=== PATIENT | female | born 1950 | race Caucasian/White ===

== ENCOUNTER 2017-07-30 18:46 | Inpatient (IN) | payer MEDICARE ==
[~2017-07-30] VITALS: Ht 160 cm; Wt 77.4 kg
[~2017-07-30 18:46] MED LIST: ASPI-1264 PO; CHOL10002 PO; DICY10CA88 PO; PARO25TA16 PO; PER10325T PO; SYN0.1T PO; VALS160T2 PO; VITA1TAB20 PO
[2017-07-30 19:24] LABS: BASOPHILS % (AUTO) 0.4 % (0-1); EOSINOPHILS # (AUTO) 0.2 X10'3 (0-0.9); EOSINOPHILS % (AUTO) 2.2 % (0-6); HEMATOCRIT 41.1 % (35.0-45.0); HEMOGLOBIN 14.4 g/dl (12.0-16.0); LYMPHOCYTES # (AUTO) 1.6 X10'3 (1.1-4.8); LYMPHOCYTES % (AUTO) 16.5 % (21-51); MEAN CORPUSCULAR HEMOGLOBIN 32.7 PG (27.0-31.0); MEAN CORPUSCULAR VOLUME 93.5 FL (78-98); MEAN PLATELET VOLUME 5.9 FL (7.4-10.4); MONOCYTES # (AUTO) 0.7 X10'3 (0-0.9); MONOCYTES % (AUTO) 7.5 % (2-12); NEUTROPHILS # (AUTO) 6.9 X10'3 (1.8-7.7); NEUTROPHILS % (AUTO) 73.4 % (42-75); PLATELET COUNT 284 X10'3 (140-440); RED BLOOD COUNT 4.39 X10'6 (4.20-5.60); RED CELL DISTRIBUTION WIDTH 14.6 % (11.5-14.5); WHITE BLOOD COUNT 9.5 X10'3 (4.5-11.0)
[2017-07-30 19:36] LABS: INR 0.9 INR; PARTIAL THROMBOPLASTIN TIME 25 SECONDS (22-32); PROTHROMBIN TIME 9.8 SECONDS (9.0-12.0)
[2017-07-30 19:42] LABS: ALANINE AMINOTRANSFERASE 25 U/L (12-78); ALBUMIN 3.7 G/DL (3.4-5.0); ALBUMIN/GLOBULIN RATIO 0.8 (1.1-1.5); ALKALINE PHOSPHATASE 87 IU/L (46-116); ANION GAP 12 (8-16); ASPARTATE AMINO TRANSFERASE 24 U/L (10-37); BILIRUBIN,TOTAL 0.7 MG/DL (0.1-1.0); BLOOD UREA NITROGEN 20 MG/DL (7-18); BUN/CREATININE RATIO 13.4 (6.6-38.0); CHLORIDE 102 MMOL/L (99-107); CREATININE 1.49 MG/DL (0.40-0.90); GLUCOSE 105 MG/DL (70-104); POTASSIUM 4.4 MMOL/L (3.5-5.1); SODIUM 139 MMOL/L (135-145); TOTAL CARBON DIOXIDE 25.5 MMOL/L (24-32); TOTAL PROTEIN 8.1 G/DL (6.4-8.2); TROPONIN I < 0.04 NG/ML (0.0-0.05); eGFR 35 ML/MIN
[2017-07-30] MEDS ORDERED: AMLO10TA4 PO (20:18)
[2017-07-30] MEDS ORDERED: LABE100T PO (20:18)
[2017-07-30] MEDS ORDERED: VALS160T2 PO (20:18)
[2017-07-30] MEDS ORDERED: ondansetron/PF 4mg/2ml inj IV PRN (22:55)
[2017-07-30] MEDS ORDERED: magnesium hydroxide 30ml (MOM) UD suspension PO PRN (22:55)
[2017-07-30] MEDS ORDERED: acetaminophen 325mg tablet PO PRN (22:55)
[2017-07-30] MEDS ORDERED: mag hydrox/Alum hydrox/simeth 30ml oral suspension PO PRN (22:55)
[2017-07-30] MEDS ORDERED: aspirin 325mg tablet PO ONE (23:00)
[2017-07-31 01:10] VITALS: BP 139/64
[2017-07-31 06:00] VITALS: BP 142/62
[2017-07-31] MEDS ORDERED: levoTHYROXINE 100mcg tablet PO SCH (07:00)
[2017-07-31 07:05] LABS: BASOPHILS # (AUTO) 0.1 X10'3 (0-0.2); BASOPHILS % (AUTO) 0.8 % (0-1); EOSINOPHILS # (AUTO) 0.2 X10'3 (0-0.9); HEMATOCRIT 37.9 % (35.0-45.0); HEMOGLOBIN 13.2 g/dl (12.0-16.0); LYMPHOCYTES # (AUTO) 1.4 X10'3 (1.1-4.8); LYMPHOCYTES % (AUTO) 18.3 % (21-51); MEAN CORPUSCULAR HEMOGLOBIN 32.9 PG (27.0-31.0); MEAN CORPUSCULAR HGB CONC 34.8 % (33.0-36.5); MEAN CORPUSCULAR VOLUME 94.4 FL (78-98); MEAN PLATELET VOLUME 6.3 FL (7.4-10.4); MONOCYTES # (AUTO) 0.6 X10'3 (0-0.9); MONOCYTES % (AUTO) 7.3 % (2-12); NEUTROPHILS # (AUTO) 5.5 X10'3 (1.8-7.7); NEUTROPHILS % (AUTO) 70.6 % (42-75); PLATELET COUNT 239 X10'3 (140-440); RED BLOOD COUNT 4.01 X10'6 (4.20-5.60); RED CELL DISTRIBUTION WIDTH 14.4 % (11.5-14.5); WHITE BLOOD COUNT 7.8 X10'3 (4.5-11.0)
[2017-07-31 07:21] LABS: ALANINE AMINOTRANSFERASE 29 U/L (12-78); ALBUMIN 3.3 G/DL (3.4-5.0); ALKALINE PHOSPHATASE 73 IU/L (46-116); ANION GAP 10 (8-16); ASPARTATE AMINO TRANSFERASE 21 U/L (10-37); BILIRUBIN,TOTAL 0.9 MG/DL (0.1-1.0); BLOOD UREA NITROGEN 18 MG/DL (7-18); BUN/CREATININE RATIO 17.6 (6.6-38.0); CALCIUM 8.7 MG/DL (8.5-10.1); CHLORIDE 104 MMOL/L (99-107); CREATININE 1.02 MG/DL (0.40-0.90); GLUCOSE 89 MG/DL (70-104); POTASSIUM 4.1 MMOL/L (3.5-5.1); SODIUM 140 MMOL/L (135-145); TOTAL CARBON DIOXIDE 26.5 MMOL/L (24-32); TOTAL PROTEIN 6.6 G/DL (6.4-8.2); eGFR 54 ML/MIN
[2017-07-31] MEDS ORDERED: heparin, porcine 5000 units/ml vial SQ SCH (08:00)
[2017-07-31] MEDS ORDERED: labetalol 100mg tablet PO SCH (08:00)
[2017-07-31] MEDS ORDERED: PAROXETINE HCL 37.5 MG PO SCH (08:00)
[2017-07-31] MEDS ORDERED: PARoxetine 30mg tablet PO SCH (08:00)
[2017-07-31] MEDS ORDERED: amLODIPine 5mg tablet PO SCH (08:00)
[2017-07-31] MEDS ORDERED: PARoxetine 10mg tablet PO SCH (08:12)
[2017-07-31] MEDS ORDERED: PARoxetine 10mg tablet PO ONE (08:15)
[2017-07-31 10:00] VITALS: BP 121/64
[2017-07-31] MEDS ORDERED: ASPI-611 PO (12:47)
== END 2017-07-31 13:55 | disposition home or self-care (01) | DRG 69 ==
LOC: ER 18:46 → ED HOLD 22:54 → ORTHO 4S 07-31 00:30
PROVIDERS: ADMIT Internal Medicine; ATTEND Internal Medicine
DX: G45.9 Transient cerebral ischemic attack, unspecified (principal); K51.90 Ulcerative colitis, unspecified, without complications; R47.81 Slurred speech; I10 Essential (primary) hypertension; Z90.49 Acquired absence of other specified parts of digestive tract; Z90.710 Acquired absence of both cervix and uterus; Z79.899 Other long term (current) drug therapy; Z88.2 Allergy status to sulfonamides; Z88.8 Allergy status to other drugs, medicaments and biological substances; Z91.041 Radiographic dye allergy status; Z88.6 Allergy status to analgesic agent
CPT/HCPCS: 36415; 70450; 70551; 71045; 80053; 82948; 84484; 85025; 85610; 85730; 87070; 93306; 93880; 97116; 97161; 99285; J1644

== ENCOUNTER 2017-09-07 10:39 | Outpatient (CLI) | payer MEDICARE ==
[~2017-09-07 10:39] MED LIST changes: +AMLO10TA4 PO; -ASPI-1264 PO; -CHOL10002 PO; -DICY10CA88 PO; +LABE100T PO; -PER10325T PO; -VITA1TAB20 PO
== END 2017-09-07 23:59 | disposition home or self-care (01) ==
LOC: 64 CT 10:39
PROVIDERS: ATTEND Internal Medicine
DX: K57.30 Diverticulosis of large intestine without perforation or abscess without bleeding (principal); Z90.49 Acquired absence of other specified parts of digestive tract; Z90.710 Acquired absence of both cervix and uterus
CPT/HCPCS: 74176

== ENCOUNTER 2017-09-18 08:30 | Outpatient (CLI) | payer MEDICARE | END 2017-09-18 23:59 | disposition home or self-care (01) | LOC: RAD 08:30 | PROVIDERS: ATTEND Internal Medicine | DX: R10.30 Lower abdominal pain, unspecified (principal); I10 Essential (primary) hypertension; Z90.49 Acquired absence of other specified parts of digestive tract; Z90.710 Acquired absence of both cervix and uterus | CPT/HCPCS: 76700; 76856 ==

== ENCOUNTER 2022-08-23 10:44 | Day surgery (SDC) | payer MEDICARE ==
[2022-08-19 10:59] LABS: BASOPHILS # (AUTO) 0.1 X10'3 (0-0.2); EOSINOPHILS # (AUTO) 0.3 X10'3 (0-0.9); HEMATOCRIT 36.2 % (35.0-45.0); HEMOGLOBIN 11.9 g/dl (12.0-16.0); LYMPHOCYTES # (AUTO) 0.7 X10'3 (1.1-4.8); LYMPHOCYTES % (AUTO) 11.4 % (21-51); MEAN CORPUSCULAR HEMOGLOBIN 28.7 PG (27.0-31.0); MEAN CORPUSCULAR HGB CONC 32.8 g/dL (33.0-36.5); MEAN CORPUSCULAR VOLUME 87.5 FL (78-98); MEAN PLATELET VOLUME 5.8 FL (7.4-10.4); MONOCYTES # (AUTO) 0.5 X10'3 (0-0.9); MONOCYTES % (AUTO) 8.4 % (2-12); NEUTROPHILS # (AUTO) 4.5 X10'3 (1.8-7.7); NEUTROPHILS % (AUTO) 74.2 % (42-75); PLATELET COUNT 292 X10'3 (140-440); RED BLOOD COUNT 4.13 X10'6 (4.20-5.60); RED CELL DISTRIBUTION WIDTH 17.9 % (11.5-14.5); WHITE BLOOD COUNT 6.1 X10'3 (4.5-11.0)
[2022-08-19 11:06] LABS: APTT 28 SECONDS (22-32)
[2022-08-19 11:08] LABS: ALBUMIN 3.8 G/DL (3.4-5.0); ANION GAP 6 (8-16); BLOOD UREA NITROGEN 10 MG/DL (7-18); BUN/CREATININE RATIO 12.5 (10.0-20.0); CALCIUM 8.3 MG/DL (8.5-10.1); CHLORIDE 98 MMOL/L (99-107); CHOL/HDL RATIO 2.5 (0.00-4.99); CHOLESTEROL 239 MG/DL (0-200); GLUCOSE 93 MG/DL (70-104); HDL CHOLESTEROL 96 MG/DL (35-60); LDL CHOLESTEROL 125 MG/DL (50-100); POTASSIUM 4.2 MMOL/L (3.5-5.1); SODIUM 134 MMOL/L (135-145); TRIGLYCERIDES 45 MG/DL (20-135); eGFR 71 ML/MIN
[2022-08-23] VITALS (8 sets, daily range): BP systolic 141–167; BP diastolic 69–95
[~2022-08-23] VITALS: Ht 157.5 cm; Wt 52.2 kg
[~2022-08-23 10:44] MED LIST changes: -LABE100T PO; +LABE100T8 PO; -PARO25TA16 PO; +PARO25TA22 PO
[2022-08-23] MEDS ORDERED: normal saline 1,000 ML IV SCH (11:05)
[2022-08-23] MEDS ORDERED: LORazepam 0.5 MG tablet PO PRN (11:05)
[2022-08-23] MEDS ORDERED: diphenhydrAMINE 25mg capsule PO PRN (11:05)
[2022-08-23] MEDS ORDERED: DULO30CA52 PO (11:11)
[2022-08-23] MEDS ORDERED: ibuprofen PO (11:11)
[2022-08-23] MEDS ORDERED: verapamil 2.5 mg/ml inj IV ONE (12:39)
[2022-08-23] MEDS ORDERED: nitroGLYCERIN-Tridil 50MG/D5W 250 ML IV ONE (12:40)
[2022-08-23] MEDS ORDERED: fentaNYL/PF 50MCG/1 ML 2ML syringe ONE (12:40)
[2022-08-23] MEDS ORDERED: midazolam 1 mg/ML 2ml injection ONE ×2 (12:40→14:02)
[2022-08-23] MEDS ORDERED: heparin 1,000unit/ml 10ml vial 10 ML ONE (12:40)
[2022-08-23] MEDS ORDERED: iohexol 350MG/ML 100ml bottle IV ONE (12:40)
[2022-08-23] MEDS ORDERED: iohexol 350 MG/ML 50ML vial IV ONE (12:40)
[2022-08-23] MEDS ORDERED: LIDOcaine 1% (10mg/ml) 2ml vial ONE (12:55)
[2022-08-23] MEDS ORDERED: LIDOcaine 1% 30ml preserv. free vial ONE (14:05)
[2022-08-23] MEDS ORDERED: HYDROcodone/acetaminophen 5mg/325mg tablet PO PRN (15:15)
[2022-08-23] MEDS ORDERED: proCHLORperazine 10 MG/2 ml inj IV PRN (15:15)
[2022-08-23] MEDS ORDERED: HYDROcodone/acetaminophen 10/325mg tab PO PRN (15:15)
[2022-08-23] MEDS ORDERED: ondansetron/PF 4mg/2ml inj IV PRN (15:15)
[2022-08-23] MEDS ORDERED: OXAZEpam 15mg capsule PO PRN (15:15)
--- NOTE | 2022-08-23 16:30 | NUR ---
Pt bleeding from radial site. Applied pressure, pushed more air into vasc band but the site is bleeding around the pillow. Called for 2nd RN to assist. 2nd RN held pressure above while I removed the vasc band and placed gauze and coban. Dressing now CD&I, small hematoma noted and pushed out. Continue to monitor.
--- NOTE | 2022-08-23 16:50 | NUR ---
Pt c/o nausea. Medicated with zofran 4mg IV as ordered. Will continue to monitor.
--- NOTE | 2022-08-23 16:50 | NUR ---
Sat patient up in bed at 1645. At 1650 when rechecking, patient had large softball sized hematoma in right groin. Layed patient down and put steady pressure with my fist for 7 minutes. Site now soft and will continue to monitor.
--- NOTE | 2022-08-23 17:50 | NUR ---
Patient ambulated without any difficulty. Groin and radial sites both look good with no s/s hematoma. Pt getting dressed and ready for discharge. Pt's nausea resolved.
== END 2022-08-23 18:00 | disposition home or self-care (01) ==
LOC: SSTAY O 10:44
PROVIDERS: ATTEND Student in an Organized Health Care Education/Training Program
DX: I71.20 Thoracic aortic aneurysm, without rupture, unspecified (principal); I25.10 Atherosclerotic heart disease of native coronary artery without angina pectoris; I71.21 Aneurysm of the ascending aorta, without rupture; I10 Essential (primary) hypertension; E03.9 Hypothyroidism, unspecified; F32.A Depression, unspecified; M81.0 Age-related osteoporosis without current pathological fracture; M19.90 Unspecified osteoarthritis, unspecified site; Z88.2 Allergy status to sulfonamides; Z88.8 Allergy status to other drugs, medicaments and biological substances; Z91.041 Radiographic dye allergy status; Z79.01 Long term (current) use of anticoagulants; Z79.899 Other long term (current) drug therapy
CPT/HCPCS: 36415; 80048; 80061; 85025; 85610; 85730; 93005; 93458; 93567; 99152; 99153; A6258; C1894; J1644; J2250; J2405; J3010; J3490; J7030; Q0163; Q9967; A6402

== ENCOUNTER 2023-04-10 03:19 | Inpatient (IN) | payer MEDICARE ==
[~2023-04-10] VITALS: Ht 157.5 cm; Wt 71.0 kg
[2023-04-10] VITALS (7 sets, daily range): PULSE 74–129; RESP 16–29; O2SAT 95–99
[~2023-04-10 03:19] MED LIST changes: +DULO30CA52 PO; +GABA300T25 PO; -PARO25TA22 PO
[2023-04-10] MEDS ORDERED: ipratropium/albuterol 3ml nebule NEB ONE (03:30)
[2023-04-10] MEDS ORDERED: aspirin 81mg tab.chew PO ONE (03:35)
[2023-04-10] MEDS ORDERED: nitroGLYCERIN 0.4mg SUBLingual tab SL PRN ×2 (03:35)
[2023-04-10] MEDS ORDERED: aspirin 325mg tablet, delayed-release (Ecotrin) PO ONE (03:35)
[2023-04-10] MEDS ORDERED: labetalol 20mg/4ml (5mg/ml) syringe IV ONE ×2 (03:45→10:40)
[2023-04-10] MEDS ORDERED: furosemide 10 MG/1 ML 10ml inj IV ONE (03:45)
[2023-04-10 04:04] LABS: ALANINE AMINOTRANSFERASE 23 U/L (12-78); ALBUMIN 3.7 G/DL (3.4-5.0); ALBUMIN/GLOBULIN RATIO 1.1 (1.1-1.5); ALKALINE PHOSPHATASE 80 IU/L (46-116); ANION GAP 11 (8-16); ASPARTATE AMINO TRANSFERASE 29 U/L (10-37); BLOOD UREA NITROGEN 12 MG/DL (7-18); BUN/CREATININE RATIO 9.9 (10.0-20.0); CALCIUM 8.8 MG/DL (8.5-10.1); CHLORIDE 100 MMOL/L (99-107); CREATININE 1.21 MG/DL (0.40-0.90); GLUCOSE 159 MG/DL (70-104); POTASSIUM 3.9 MMOL/L (3.5-5.1); SODIUM 138 MMOL/L (135-145); TOTAL CARBON DIOXIDE 27.2 MMOL/L (24-32); TOTAL PROTEIN 7.2 G/DL (6.4-8.2); eCRCL 34 ML/MIN; eGFR 44 ML/MIN
[2023-04-10 04:05] LABS: BASOPHILS # (AUTO) 0.1 X10'3 (0-0.2); EOSINOPHILS # (AUTO) 0.1 X10'3 (0-0.9); EOSINOPHILS % (AUTO) 1.1 % (0-6); LYMPHOCYTES # (AUTO) 1.3 X10'3 (1.1-4.8); LYMPHOCYTES % (AUTO) 12.8 % (21-51); MEAN PLATELET VOLUME 6.9 FL (7.4-10.4); MONOCYTES # (AUTO) 0.7 X10'3 (0-0.9); MONOCYTES % (AUTO) 7.1 % (2-12); NEUTROPHILS # (AUTO) 7.8 X10'3 (1.8-7.7); PLATELET COUNT 216 X10'3 (140-440)
[2023-04-10] MEDS ORDERED: APIX5TAB3 PO (04:11)
[2023-04-10 04:13] LABS: PRO BRAIN NATRIURETIC PEPTIDE > 30000 PG/ML (0-125)
[2023-04-10] MEDS ORDERED: LOSA25TA41 PO (04:18)
[2023-04-10] MEDS ORDERED: EZET10TA48 PO (04:18)
[2023-04-10] MEDS ORDERED: METO25TA6 PO (04:18)
[2023-04-10] MEDS ORDERED: LEVE500T PO (04:18)
[2023-04-10 04:19] LABS: ABG HCO3 24.1 mmol/L (22.0-26.0); ABG OXYGEN SATURATION 99.8 % (94-97); ABG PCO2 (T) 40.4 mmHg (32.0-45.0); ABG PH (T) 7.391 (7.350-7.450); ABG PO2 (T) 445.3 mmHg (75.0-100.0); ALLEN'S TEST Modified; FCOHb 0.8 % (0.0-3.9); FHHb 0.2 % (0.0-5.0); FMetHb 0.3 % (0.0-1.5); FO2Hb 98.7 % (94-97); PATIENT TEMPERATURE 36.2
[2023-04-10 04:24] LABS: HEMATOCRIT 32.9 % (35.0-45.0); HEMOGLOBIN 10.2 g/dl (12.0-16.0); MEAN CORPUSCULAR HEMOGLOBIN 23.1 PG (27.0-31.0); MEAN CORPUSCULAR HGB CONC 31.1 g/dL (33.0-36.5); MEAN CORPUSCULAR VOLUME 74.4 FL (78-98); RED BLOOD COUNT 4.42 X10'6 (4.20-5.60); RED CELL DISTRIBUTION WIDTH 18.8 % (11.5-14.5)
[2023-04-10] MEDS ORDERED: GABA300C PO ×2 (04:34)
[2023-04-10] MEDS ORDERED: FOLI1TAB27 PO (04:34)
[2023-04-10] MEDS ORDERED: HYDROcodone/acetaminophen 5mg/325mg tablet PO PRN (05:05)
[2023-04-10] MEDS: normal saline 1000ml 1,000 ML IV SCH (05:05)
[2023-04-10] MEDS ORDERED: mag hydrox/Alum hydrox/simeth 30ml oral suspension PO PRN (05:05)
[2023-04-10] MEDS ORDERED: diphenhydrAMINE 50 mg/ml inj IV PRN (05:05)
[2023-04-10] MEDS ORDERED: diphenhydrAMINE 25mg capsule PO PRN (05:05)
[2023-04-10] MEDS ORDERED: acetaminophen 650mg rectal suppository RC PRN (05:05)
[2023-04-10] MEDS ORDERED: HYDROcodone/acetaminophen 10/325mg tab PO PRN (05:05)
[2023-04-10] MEDS ORDERED: ipratropium/albuterol 3ml nebule NEB PRN (05:05)
[2023-04-10] MEDS ORDERED: magnesium hydroxide 30ml (MOM) UD suspension PO PRN (05:05)
[2023-04-10] MEDS ORDERED: acetaminophen 325mg tablet PO PRN ×2 (05:05)
[2023-04-10] MEDS ORDERED: ondansetron/PF 4mg/2ml inj IV PRN (05:05)
[2023-04-10] MEDS ORDERED: ondansetron 4mg rapidly disintigrating tab PO PRN (05:05)
[2023-04-10] MEDS ORDERED: morphine 2 MG/ML inj. syringe IV PRN ×2 (05:05)
--- NOTE | 2023-04-10 07:13 | NUR ---
0705 RT AT BEDSIDE. REMOVED BIPAP PLACED ON ROOM AIR.
[2023-04-10 07:52] LABS: ETHANOL < 10 MG/DL (<10); MAGNESIUM 1.5 MG/DL (1.5-2.4); PHOSPHORUS 3.6 MG/DL (2.3-4.5)
[2023-04-10 07:59] LABS: HEMOGLOBIN A1C 4.8 % (4.5-6.2)
[2023-04-10 08:01] LABS: APTT 24 SECONDS (22-32); INR 1.1 INR; PROTHROMBIN TIME 12.1 SECONDS (9.0-12.0)
[2023-04-10] MEDS: furosemide 10 MG/1 ML 10ml inj IV SCH (08:12)
[2023-04-10] MEDS: docusate sod 100mg capsule PO SCH ×2 (08:13→19:46)
[2023-04-10 08:32] LABS: D-DIMER 1.59 MG/L FEU (0-0.50)
[2023-04-10 12:32] LABS: THYROID STIMULATING HORMONE 7.3 ulU/ml (0.34-4.50)
[2023-04-10] MEDS: apixaban 5mg tablet PO SCH (13:06)
[2023-04-10] MEDS: duloxetine 30mg CAPSULE.DR PO SCH (13:07)
[2023-04-10] MEDS: folic acid 1mg tablet PO SCH (13:07)
[2023-04-10] MEDS: ezetimibe 10mg tablet PO SCH (13:07)
[2023-04-10] MEDS: diltiazem 30mg tablet PO SCH ×2 (13:08→19:45)
--- NOTE | 2023-04-10 17:02 | NUR ---
PT REPOSITIONED, LINENS CHANGED
[2023-04-10] MEDS: metoprolol tartrate 50mg tablet PO SCH (19:46)
[2023-04-10] MEDS: gabapentin 300mg capsule PO SCH (19:48)
[2023-04-10] MEDS: levetiracetam 250mg tablet PO SCH (19:54)
--- NOTE | 2023-04-10 19:55 | NUR ---
Pt is a&o x4, pt states she no longer takes keppra. Keppra was tapered down since surgery. Pt refused keppra.
[2023-04-10] MEDS ORDERED: temazepam 15mg capsule PO PRN (21:00)
[2023-04-11] VITALS (10 sets, daily range): BP systolic 105–130; BP diastolic 55–74; PULSE 64–82; RESP 16–20; TEMP 97.5–99; O2SAT 90–100
[2023-04-11] MEDS: diltiazem 30mg tablet PO SCH ×4 (02:30→19:52)
--- NOTE | 2023-04-11 06:56 | NUR ---
ASSUMED CARE OF PATIENT. BED CHANGED, TURNED AND REPOSTIONED.
[2023-04-11] MEDS: levetiracetam 250mg tablet PO SCH ×2 (08:00→19:53)
[2023-04-11] MEDS: furosemide 10 MG/1 ML 10ml inj IV SCH (08:00)
[2023-04-11] MEDS: docusate sod 100mg capsule PO SCH ×2 (08:00→19:53)
[2023-04-11] MEDS: losartan 25mg tablet PO SCH (09:13)
[2023-04-11] MEDS: ezetimibe 10mg tablet PO SCH (09:13)
[2023-04-11] MEDS: gabapentin 300mg capsule PO SCH ×3 (09:15→19:54)
[2023-04-11] MEDS: levoTHYROXINE 100mcg tablet PO SCH (09:15)
[2023-04-11] MEDS: folic acid 1mg tablet PO SCH (09:15)
[2023-04-11] MEDS: duloxetine 30mg CAPSULE.DR PO SCH (09:15)
[2023-04-11] MEDS: apixaban 5mg tablet PO SCH (09:15)
[2023-04-11] MEDS: metoprolol tartrate 50mg tablet PO SCH ×2 (09:16→19:53)
[2023-04-11 09:20] LABS: BASOPHILS % (AUTO) 0.7 % (0-1); EOSINOPHILS # (AUTO) 0.1 X10'3 (0-0.9); HEMATOCRIT 27.6 % (35.0-45.0); HEMOGLOBIN 8.3 g/dl (12.0-16.0); LYMPHOCYTES # (AUTO) 0.7 X10'3 (1.1-4.8); LYMPHOCYTES % (AUTO) 11.3 % (21-51); MEAN CORPUSCULAR HEMOGLOBIN 22.9 PG (27.0-31.0); MEAN CORPUSCULAR HGB CONC 30.1 g/dL (33.0-36.5); MEAN CORPUSCULAR VOLUME 75.9 FL (78-98); MEAN PLATELET VOLUME 6.9 FL (7.4-10.4); MONOCYTES # (AUTO) 0.7 X10'3 (0-0.9); MONOCYTES % (AUTO) 10.4 % (2-12); NEUTROPHILS % (AUTO) 75.6 % (42-75); PLATELET COUNT 182 X10'3 (140-440); RED BLOOD COUNT 3.63 X10'6 (4.20-5.60); RED CELL DISTRIBUTION WIDTH 19.6 % (11.5-14.5); WHITE BLOOD COUNT 6.6 X10'3 (4.5-11.0)
--- NOTE | 2023-04-11 09:30 | NUR ---
PT REFUSED DOREEN, RAFAELA AND LASIX. PT REPORTS THAT HER PCP RECENTLY D/C'd THE RAFAELA.
[2023-04-11 10:26] LABS: ALANINE AMINOTRANSFERASE 15 U/L (12-78); ALBUMIN 2.8 G/DL (3.4-5.0); ALKALINE PHOSPHATASE 59 IU/L (46-116); ANION GAP 6 (8-16); ASPARTATE AMINO TRANSFERASE 23 U/L (10-37); BILIRUBIN,TOTAL 1.1 MG/DL (0.1-1.0); BLOOD UREA NITROGEN 10 MG/DL (7-18); BUN/CREATININE RATIO 11.1 (10.0-20.0); CALCIUM 7.8 MG/DL (8.5-10.1); CHLORIDE 97 MMOL/L (99-107); CHOL/HDL RATIO 2.5 (0.00-4.99); CHOLESTEROL 150 MG/DL (0-200); GLUCOSE 83 MG/DL (70-104); HDL CHOLESTEROL 60 MG/DL (35-60); LDL CHOLESTEROL 77 MG/DL (50-100); POTASSIUM 3.1 MMOL/L (3.5-5.1); SODIUM 137 MMOL/L (135-145); TOTAL CARBON DIOXIDE 33.6 MMOL/L (24-32); TOTAL PROTEIN 5.7 G/DL (6.4-8.2); TRIGLYCERIDES 53 MG/DL (20-135); eCRCL 45 ML/MIN; eGFR 62 ML/MIN
--- NOTE | 2023-04-11 14:28 | NUR ---
PAGE SENT PAGER ID: [phone] MESSAGE: [id number], Lai FRANKS -3.1, WE NEED ELECTROLYTE PROTOCOL PLEASE. THANK YOU, NELLIE, [phone]
[2023-04-11] MEDS ORDERED: magnesium 4gm in 100ml NS 100 ML IV PRN (14:35)
[2023-04-11] MEDS ORDERED: magnesium 2GM in 50ml NS 50 ML IV PRN (14:35)
[2023-04-11] MEDS ORDERED: potassium Cl 20 mEq SR tablet PO PRN ×2 (14:35)
[2023-04-11] MEDS ORDERED: potassium Cl 40MEQ/1/2NS 520ml 520 ML IV PRN (14:35)
[2023-04-11] MEDS ORDERED: magnesium Cl slow-release 64mg tablet PO PRN (14:35)
[2023-04-11] MEDS: HYDROcodone/acetaminophen 5mg/325mg tablet PO PRN (17:17)
--- NOTE | 2023-04-11 18:15 | NUR ---
Problems reprioritized. Patient report given, questions answered & plan of care reviewed with LISHA HUFFMAN.
[2023-04-11] MEDS: K and/or MAG REPLACEMENT MC SCH (20:40)
[2023-04-12] VITALS (10 sets, daily range): BP systolic 119–132; BP diastolic 66–78; PULSE 63–78; RESP 12–20; TEMP 97.5–98.2; O2SAT 92–99
[2023-04-12] MEDS: diltiazem 30mg tablet PO SCH ×4 (01:27→20:11)
[2023-04-12] MEDS: normal saline 1000ml 1,000 ML IV SCH (05:05)
--- NOTE | 2023-04-12 06:17 | NUR ---
Patient in room PCU 3014. I have received report from LISHA HUFFMAN, and had the opportunity to ask questions and assume patient care.
[2023-04-12 07:49] LABS: BASOPHILS # (AUTO) 0.1 X10'3 (0-0.2); BASOPHILS % (AUTO) 1.4 % (0-1); EOSINOPHILS # (AUTO) 0.2 X10'3 (0-0.9); EOSINOPHILS % (AUTO) 3.5 % (0-6); HEMATOCRIT 26.3 % (35.0-45.0); LYMPHOCYTES # (AUTO) 0.9 X10'3 (1.1-4.8); LYMPHOCYTES % (AUTO) 14.3 % (21-51); MEAN CORPUSCULAR HGB CONC 30.5 g/dL (33.0-36.5); MEAN CORPUSCULAR VOLUME 75.6 FL (78-98); MEAN PLATELET VOLUME 6.9 FL (7.4-10.4); MONOCYTES # (AUTO) 0.7 X10'3 (0-0.9); NEUTROPHILS # (AUTO) 4.2 X10'3 (1.8-7.7); NEUTROPHILS % (AUTO) 69.8 % (42-75); PLATELET COUNT 208 X10'3 (140-440); RED BLOOD COUNT 3.48 X10'6 (4.20-5.60); RED CELL DISTRIBUTION WIDTH 19.5 % (11.5-14.5)
[2023-04-12] MEDS: levetiracetam 250mg tablet PO SCH ×2 (08:00→20:00)
[2023-04-12] MEDS: K and/or MAG REPLACEMENT MC SCH ×2 (08:00→20:00)
[2023-04-12] MEDS: gabapentin 300mg capsule PO SCH ×4 (08:00→20:11)
[2023-04-12] MEDS: docusate sod 100mg capsule PO SCH ×2 (08:00→20:00)
[2023-04-12 08:10] LABS: ALANINE AMINOTRANSFERASE 15 U/L (12-78); ALBUMIN 2.8 G/DL (3.4-5.0); ALKALINE PHOSPHATASE 59 IU/L (46-116); ANION GAP 4 (8-16); ASPARTATE AMINO TRANSFERASE 20 U/L (10-37); BILIRUBIN,TOTAL 0.6 MG/DL (0.1-1.0); BLOOD UREA NITROGEN 14 MG/DL (7-18); BUN/CREATININE RATIO 13.6 (10.0-20.0); CALCIUM 7.8 MG/DL (8.5-10.1); CHLORIDE 98 MMOL/L (99-107); CREATININE 1.03 MG/DL (0.40-0.90); GLUCOSE 97 MG/DL (70-104); POTASSIUM 3.8 MMOL/L (3.5-5.1); SODIUM 136 MMOL/L (135-145); TOTAL CARBON DIOXIDE 33.6 MMOL/L (24-32); TOTAL PROTEIN 5.7 G/DL (6.4-8.2); eCRCL 40 ML/MIN; eGFR 53 ML/MIN
[2023-04-12 08:41] LABS: ACANTHOCYTES FEW; ANISOCYTOSIS 2+; ELLIPTOCYTES FEW; MICROCYTOSIS 1+; PLATELET ESTIMATE NORMAL; POLYCHROMASIA FEW
[2023-04-12] MEDS: furosemide 10 MG/1 ML 10ml inj IV SCH (08:49)
[2023-04-12] MEDS: ezetimibe 10mg tablet PO SCH (08:49)
[2023-04-12] MEDS: metoprolol tartrate 50mg tablet PO SCH ×2 (08:50→20:11)
[2023-04-12] MEDS: folic acid 1mg tablet PO SCH (08:51)
[2023-04-12] MEDS: duloxetine 30mg CAPSULE.DR PO SCH (08:52)
[2023-04-12] MEDS: losartan 25mg tablet PO SCH (08:52)
[2023-04-12] MEDS: apixaban 5mg tablet PO SCH (08:52)
[2023-04-12] MEDS: levoTHYROXINE 100mcg tablet PO SCH (08:53)
--- NOTE | 2023-04-12 15:16 | NUR ---
O2 Sat at rest on room air:_92__% If below 89%: Recovery O2 Sat at rest on ___LPM:___%:___% via (mask/nasal cannula, etc..) No further documentation is necessary. If O2 Sat did not drop below 89% on room air,ambulate patient on room air. O2 Sat while ambulating on room air:_97 __% Recovery O2 Sat while ambulating on ___LPM:___% No further documentation is necessary. If patient does not drop below 89% while ambulating, he/she does not qualify for home O2.
[2023-04-12] MEDS: HYDROcodone/acetaminophen 5mg/325mg tablet PO PRN (15:45)
--- NOTE | 2023-04-12 16:06 | NUR ---
PAGE SENT PAGER ID: [phone] MESSAGE: [id number], LISSY KUMAR, PT DOESN'T NEED HOME O2. AWAITING ECHO RESULTS. THANK YOU, NELLIE [phone]
--- NOTE | 2023-04-12 18:09 | NUR ---
Problems reprioritized. Patient report given, questions answered & plan of care reviewed with LISHA HUFFMAN[].
--- NOTE | 2023-04-12 23:03 | NUR ---
Review of TUTOR assessment. performed my own assessment. medications administered per orders.
[2023-04-13 02:00] VITALS: BP 127/70; PULSE 63; RESP 13; TEMP 97.7; O2SAT 93
[2023-04-13 03:25] VITALS: PULSE 63; RESP 18; O2SAT 92
[2023-04-13 07:00] LABS: BASOPHILS # (AUTO) 0.1 X10'3 (0-0.2); BASOPHILS % (AUTO) 1.3 % (0-1); EOSINOPHILS # (AUTO) 0.2 X10'3 (0-0.9); EOSINOPHILS % (AUTO) 3.1 % (0-6); HEMATOCRIT 25.9 % (35.0-45.0); LYMPHOCYTES # (AUTO) 0.7 X10'3 (1.1-4.8); LYMPHOCYTES % (AUTO) 13.1 % (21-51); MEAN CORPUSCULAR HGB CONC 30.9 g/dL (33.0-36.5); MEAN CORPUSCULAR VOLUME 74.7 FL (78-98); MEAN PLATELET VOLUME 6.7 FL (7.4-10.4); MONOCYTES # (AUTO) 0.6 X10'3 (0-0.9); MONOCYTES % (AUTO) 11.5 % (2-12); NEUTROPHILS # (AUTO) 3.7 X10'3 (1.8-7.7); PLATELET COUNT 215 X10'3 (140-440); RED BLOOD COUNT 3.46 X10'6 (4.20-5.60); RED CELL DISTRIBUTION WIDTH 19.5 % (11.5-14.5); WHITE BLOOD COUNT 5.3 X10'3 (4.5-11.0)
[2023-04-13 07:24] LABS: % IRON SATURATION 5 % (11-46); ALANINE AMINOTRANSFERASE 13 U/L (12-78); ALBUMIN 2.8 G/DL (3.4-5.0); ALKALINE PHOSPHATASE 59 IU/L (46-116); ANION GAP 7 (8-16); ASPARTATE AMINO TRANSFERASE 20 U/L (10-37); BILIRUBIN,TOTAL 0.7 MG/DL (0.1-1.0); BLOOD UREA NITROGEN 18 MG/DL (7-18); BUN/CREATININE RATIO 18.9 (10.0-20.0); CALCIUM 7.6 MG/DL (8.5-10.1); CHLORIDE 95 MMOL/L (99-107); CREATININE 0.95 MG/DL (0.40-0.90); GLUCOSE 93 MG/DL (70-104); IRON 15 UG/DL (49-151); POTASSIUM 3.7 MMOL/L (3.5-5.1); SODIUM 133 MMOL/L (135-145); TOTAL CARBON DIOXIDE 31.5 MMOL/L (24-32); TOTAL IRON BINDING CAPACITY 310 UG/DL (259-388); TOTAL PROTEIN 5.7 G/DL (6.4-8.2); eCRCL 43 ML/MIN; eGFR 58 ML/MIN
[2023-04-13] MEDS: K and/or MAG REPLACEMENT MC SCH ×2 (08:00→13:00)
[2023-04-13] MEDS ORDERED: sacubitril/valsartan 24mg-26mg tablet PO SCH (08:00)
[2023-04-13] MEDS ORDERED: EMPAGLIFLOZIN 10 MG TABLET PO SCH (08:00)
[2023-04-13] MEDS ORDERED: iron sucrose complex injection 500 MG in normal saline 250ml IV soln 250 ML IV ONE (08:05)
[2023-04-13] MEDS: furosemide 10 MG/1 ML 10ml inj IV SCH (08:10)
[2023-04-13] MEDS ORDERED: spironolactone 25 MG tablet PO SCH (08:30)
[2023-04-13] MEDS: HYDROcodone/acetaminophen 5mg/325mg tablet PO PRN ×2 (08:43→17:17)
[2023-04-13] MEDS: docusate sod 100mg capsule PO SCH (08:43)
[2023-04-13] MEDS: levetiracetam 250mg tablet PO SCH (08:44)
[2023-04-13] MEDS: metoprolol tartrate 50mg tablet PO SCH (08:44)
[2023-04-13] MEDS: levoTHYROXINE 100mcg tablet PO SCH (08:44)
[2023-04-13] MEDS: folic acid 1mg tablet PO SCH (08:45)
[2023-04-13] MEDS: ezetimibe 10mg tablet PO SCH (08:45)
[2023-04-13] MEDS: apixaban 5mg tablet PO SCH (08:45)
[2023-04-13] MEDS: duloxetine 30mg CAPSULE.DR PO SCH (08:46)
[2023-04-13] MEDS: gabapentin 300mg capsule PO SCH ×2 (08:47→08:55)
[2023-04-13 09:01] VITALS: RESP 16; O2SAT 92
[2023-04-13 10:00] VITALS: BP 131/88; PULSE 79; RESP 16; TEMP 97.4; O2SAT 96
[2023-04-13] MEDS ORDERED: METO-384 PO (10:30)
[2023-04-13] MEDS ORDERED: FURO40TA4 PO (10:30)
[2023-04-13] MEDS ORDERED: SACU1TAB PO (10:30)
[2023-04-13] MEDS ORDERED: POTA-207 PO (10:30)
[2023-04-13] MEDS ORDERED: SPIR25TA PO (10:30)
[2023-04-13 10:56] VITALS: PULSE 70; RESP 16; O2SAT 94
--- NOTE | 2023-04-13 17:00 | NUR ---
Patient alert and oriented will be going home with . All medications sent to [facility] pharmacy. All new prescriptions explained to patient and education provided. All personal belongings with patient. all discharge paper work signed and completed. IV removed.
[2023-04-13 17:17] VITALS: RESP 15
== END 2023-04-13 17:47 | disposition home or self-care (01) | DRG 291 ==
LOC: ER 03:20 → ED HOLD 05:09 → PCU 3S 04-11 07:35
PROVIDERS: ADMIT Family Medicine; ATTEND Internal Medicine
PROC: 5A09357 Assistance with Respiratory Ventilation, Less than 24 Consecutive Hours, Continuous Positive Airway Pressure (ICD-10-PCS; principal; 2023-04-10)
DX: I13.0 Hypertensive heart and chronic kidney disease with heart failure and stage 1 through stage 4 chronic kidney disease, or unspecified chronic kidney disease (principal); I50.43 Acute on chronic combined systolic (congestive) and diastolic (congestive) heart failure; J96.01 Acute respiratory failure with hypoxia; N17.0 Acute kidney failure with tubular necrosis; K51.90 Ulcerative colitis, unspecified, without complications; D50.9 Iron deficiency anemia, unspecified; E78.5 Hyperlipidemia, unspecified; E87.6 Hypokalemia; E03.9 Hypothyroidism, unspecified; I48.91 Unspecified atrial fibrillation; K21.9 Gastro-esophageal reflux disease without esophagitis; Z20.822 Contact with and (suspected) exposure to COVID-19; K57.90 Diverticulosis of intestine, part unspecified, without perforation or abscess without bleeding; N18.9 Chronic kidney disease, unspecified; R56.9 Unspecified convulsions; Z79.01 Long term (current) use of anticoagulants; Z79.899 Other long term (current) drug therapy; Z86.79 Personal history of other diseases of the circulatory system; Z87.891 Personal history of nicotine dependence; Z88.2 Allergy status to sulfonamides; Z90.49 Acquired absence of other specified parts of digestive tract; Z90.710 Acquired absence of both cervix and uterus; Z95.2 Presence of prosthetic heart valve
CPT/HCPCS: 36415; 36600; 71045; 80053; 80061; 80320; 82803; 83036; 83540; 83550; 83605; 83735; 83880; 84100; 84443; 84484; 85008; 85018; 85025; 85379; 85610; 85730; 87040; 87081; 87502; 87503; 87811; 93306; 94640; 94660; 94760; 96374; 96375; 99285; A4314; A4615; C1758; G0378; J1756; J1940; J2270; J3490; J7030; J7050

== ENCOUNTER 2024-02-28 00:12 | Inpatient (IN) | payer MEDICARE ==
[~2024-02-28] VITALS: Ht 167.6 cm; Wt 41.7 kg
[2024-02-28] VITALS (25 sets, daily range): BP systolic 93–152; BP diastolic 42–71; PULSE 79–127; RESP 13–32; TEMP 96.8–99.3; O2SAT 90–100
[~2024-02-28 00:12] MED LIST changes: -AMLO10TA4 PO; +APIX5TAB3 PO; +EZET10TA48 PO; +FOLI1TAB27 PO; +FURO40TA4 PO; +GABA300C PO; -GABA300T25 PO; -LABE100T8 PO; +LEVE500T PO; +METO-384 PO; +POTA-207 PO; +SACU1TAB PO; +SPIR25TA PO; -VALS160T2 PO
[2024-02-28 00:38] LABS: ABG BASE EXCESS -30.2 mmol/L (-2.0-3.0); ABG HCO3 2.8 mmol/L (21.0-28.0); ABG OXYGEN SATURATION 99.7 % (94.0-98.0); ABG PCO2 (T) 17.1 mmHg (32.0-45.0); ABG PH (T) 6.798 (7.350-7.450); ABG PO2 (T) 306.3 mmHg (83.0-108.0); FCOHb 0.5 % (0.5-1.5); FHHb 0.3 % (0.0-5.0); FMetHb 0.2 % (0.0-1.5); MODE nrb; PATIENT TEMPERATURE 33.9; TOTAL HEMOGLOBIN 7.5 G/dl (12.0-16.0)
[2024-02-28] MEDS: normal saline 1000ml 1,000 ML IV ONE ×2 (00:38→00:48)
[2024-02-28] MEDS: sodium bicarbonate (8.4%) 1 mEq/ml syringe IV ONE ×2 (00:40→02:23)
[2024-02-28 00:41] LABS: BASOPHILS # (AUTO) 0.2 X10'3 (0-0.2); BASOPHILS % (AUTO) 0.5 % (0-1); EOSINOPHILS # (AUTO) 0.9 X10'3 (0-0.9); EOSINOPHILS % (AUTO) 2.7 % (0-6); LYMPHOCYTES # (AUTO) 2.2 X10'3 (1.1-4.8); LYMPHOCYTES % (AUTO) 6.6 % (21-51); MEAN PLATELET VOLUME 8.1 FL (7.4-10.4); NEUTROPHILS % (AUTO) 87.2 % (42-75); PLATELET COUNT 295 X10'3 (140-440)
[2024-02-28] MEDS: NORepinephrine 8mg/ 250ml NS 250 ML IV SCH (00:46)
[2024-02-28 01:15] LABS: RED BLOOD COUNT 2.71 X10'6 (4.20-5.60)
[2024-02-28 01:16] LABS: MEAN CORPUSCULAR HEMOGLOBIN 25.3 PG (27.0-31.0); MEAN CORPUSCULAR HGB CONC 33.6 g/dL (33.0-36.5); MEAN CORPUSCULAR VOLUME 75.4 FL (78-98)
[2024-02-28 01:17] LABS: ALANINE AMINOTRANSFERASE 49 U/L (12-78); ALBUMIN 1.8 G/DL (3.4-5.0); ALBUMIN/GLOBULIN RATIO 0.5 (1.1-1.5); ALKALINE PHOSPHATASE 99 IU/L (46-116); ANION GAP 30 (8-16); ASPARTATE AMINO TRANSFERASE 58 U/L (10-37); BILIRUBIN,TOTAL 0.4 MG/DL (0.1-1.0); BLOOD UREA NITROGEN 108 MG/DL (7-18); BUN/CREATININE RATIO 21.4 (10.0-20.0); CALCIUM 8.8 MG/DL (8.5-10.1); CHLORIDE 94 MMOL/L (99-107); CREATININE 5.04 MG/DL (0.40-0.90); GLUCOSE 222 MG/DL (70-104); POTASSIUM 4.3 MMOL/L (3.5-5.1); PRO BRAIN NATRIURETIC PEPTIDE 3831 PG/ML (0-125); RED CELL DISTRIBUTION WIDTH 19.5 % (11.5-14.5); SODIUM 130 MMOL/L (135-145); THYROID STIMULATING HORMONE 6.78 ulU/ml (0.34-4.50); TOTAL PROTEIN 5.6 G/DL (6.4-8.2); eCRCL 8 ML/MIN; eGFR 8 ML/MIN
[2024-02-28 01:18] LABS: HEMATOCRIT 20.4 % (35.0-45.0); HEMOGLOBIN 6.9 g/dl (12.0-16.0); WHITE BLOOD COUNT 33.3 X10'3 (4.5-11.0)
[2024-02-28] MEDS: CefTRIAXone/D5W-Rocephin 1gm 50 ML IV ONE (01:19)
[2024-02-28 01:29] LABS: TOTAL CARBON DIOXIDE 6.3 MMOL/L (24-32)
[2024-02-28 01:34] LABS: OCCULT BLOOD STOOL POSITIVE (Neg)
[2024-02-28 01:36] LABS: CLARITY,URINE BLOODY (Clear); COLOR,URINE RED (Yellow); UA COLLECTION TYPE CLN CATCH MIDSTREAM
[2024-02-28 01:43] LABS: BACTERIA,URINE 3+ /HPF (Neg); RBC,URINE TNTC /HPF (0-2); SQUAMOUS EPITHELIAL CELL,UR FEW /LPF (FEW); WBC,URINE TNTC /HPF (0-4)
[2024-02-28] MEDS: NORepinephrine 8mg/ 250ml NS 250 ML IV ONE (02:08)
[2024-02-28] MEDS: proCHLORperazine 10 MG/2 ml inj IV ONE (02:49)
[2024-02-28] MEDS: pantoprazole 40 MG vial IV ONE (03:39)
[2024-02-28 03:43] LABS: ANISOCYTOSIS 3+; PLATELET ESTIMATE NORMAL; TOTAL CELLS COUNTED 100
[2024-02-28 03:48] LABS: BURR CELLS 2+; SCHISTOCYTES FEW
[2024-02-28 03:51] LABS: ACANTHOCYTES 1+; HYPOCHROMASIA 1+
[2024-02-28 03:53] LABS: POIKILOCYTOSIS 1+; TOXIC GRANULATION 1+
[2024-02-28] MEDS ORDERED: magnesium hydroxide 30ml (MOM) UD suspension PO PRN (05:20)
[2024-02-28] MEDS ORDERED: acetaminophen 325mg tablet PO PRN (05:20)
[2024-02-28] MEDS: LidoCAINE 2% Topical Jelly 11mL syringe (UROJET) TOP ONE (05:37)
[2024-02-28] MEDS: normal saline 1000ml 1,000 ML IV SCH (06:55)
[2024-02-28] MEDS ORDERED: METO-411 PO (07:03)
[2024-02-28] MEDS ORDERED: LOSA100T58 PO (07:03)
[2024-02-28] MEDS ORDERED: GABA300C PO (07:03)
[2024-02-28] MEDS ORDERED: famotidine/PF 10 mg/ml inj IV SCH (08:00)
[2024-02-28] MEDS ORDERED: amiodarone 50MG/ML inj IV ONE (09:00)
[2024-02-28 09:19] LABS: ABG BASE EXCESS -5.6 mmol/L (-2.0-3.0); ABG HCO3 17.5 mmol/L (21.0-28.0); ABG OXYGEN SATURATION 95.4 % (94.0-98.0); ABG PCO2 (T) 27.7 mmHg (32.0-45.0); ABG PH (T) 7.421 (7.350-7.450); ABG PO2 (T) 83.7 mmHg (83.0-108.0); ALLEN'S TEST POSITIVE; FCOHb 0.3 % (0.5-1.5); FHHb 4.6 % (0.0-5.0); FLOW 0 L/min; FMetHb 0.3 % (0.0-1.5); FO2Hb 94.8 % (94.0-98.0); MODE RA; PATIENT TEMPERATURE 37.5; TOTAL HEMOGLOBIN 10.8 G/dl (12.0-16.0)
[2024-02-28] MEDS: pantoprazole 40 MG vial IV SCH (09:43)
[2024-02-28 10:19] LABS: BASOPHILS % (AUTO) 0.1 % (0-1); EOSINOPHILS % (AUTO) 0 % (0-6); HEMATOCRIT 30.1 % (35.0-45.0); HEMOGLOBIN 9.7 g/dl (12.0-16.0); LYMPHOCYTES # (AUTO) 0.4 X10'3 (1.1-4.8); LYMPHOCYTES % (AUTO) 1.4 % (21-51); MEAN CORPUSCULAR HEMOGLOBIN 26.8 PG (27.0-31.0); MEAN CORPUSCULAR HGB CONC 32.2 g/dL (33.0-36.5); MEAN CORPUSCULAR VOLUME 83.2 FL (78-98); MEAN PLATELET VOLUME 7.6 FL (7.4-10.4); MONOCYTES # (AUTO) 0.5 X10'3 (0-0.9); MONOCYTES % (AUTO) 1.7 % (2-12); NEUTROPHILS # (AUTO) 29.2 X10'3 (1.8-7.7); NEUTROPHILS % (AUTO) 96.8 % (42-75); PLATELET COUNT 155 X10'3 (140-440); RED BLOOD COUNT 3.62 X10'6 (4.20-5.60); RED CELL DISTRIBUTION WIDTH 20.2 % (11.5-14.5)
[2024-02-28 10:26] LABS: WHITE BLOOD COUNT 30.1 X10'3 (4.5-11.0)
[2024-02-28 10:28] LABS: APTT 31 SECONDS (22-32); D-DIMER 8.92 MG/L FEU (0-0.50); FIBRINOGEN 554 MG/DL (177-424); INR 1.4 INR; PROTHROMBIN TIME 14.7 SECONDS (9.0-12.0)
[2024-02-28] MEDS: ringers solution, lacted 2,000 ML IV ONE (10:40)
[2024-02-28] MEDS: ringers solution, lacted 1,000 ML IV ONE (10:55)
[2024-02-28] MEDS: albumin (human) 25% 100ml IV 400 ML IV ONE (10:55)
[2024-02-28] MEDS: albumin (Human) 5% 250ml 500 ML IV ONE (11:17)
[2024-02-28] MEDS: albumin (Human) 5% 250ml 250 ML IV SCH (11:35)
[2024-02-28] MEDS ORDERED: MIDAZolam 1 MG/ML 5ML VIAL ONE (16:11)
[2024-02-28] MEDS ORDERED: fentaNYL/PF 50MCG/1 ML 2ML syringe ONE (16:11)
[2024-02-28] MEDS ORDERED: LIDOcaine 2% Viscous 15ml cup ONE (16:11)
[2024-02-28] MEDS ORDERED: epiNEPHrine 0.1mg/ml 10ml syringe ONE (16:11)
[2024-02-28] MEDS ORDERED: simethicone 40mg/0.6ml oral drops 30ml ONE (16:31)
[2024-02-28 17:49] LABS: HEMATOCRIT 22.6 % (35.0-45.0); HEMOGLOBIN 7.3 g/dl (12.0-16.0); MEAN CORPUSCULAR HEMOGLOBIN 26.8 PG (27.0-31.0); MEAN CORPUSCULAR HGB CONC 32.3 g/dL (33.0-36.5); MEAN CORPUSCULAR VOLUME 82.8 FL (78-98); PLATELET COUNT 83 X10'3 (140-440); RED BLOOD COUNT 2.73 X10'6 (4.20-5.60); RED CELL DISTRIBUTION WIDTH 19.8 % (11.5-14.5); WHITE BLOOD COUNT 22.2 X10'3 (4.5-11.0)
[2024-02-28] MEDS ORDERED: glucagon, human recombinant 1mg kit SUBCUT PRN (19:50)
[2024-02-28] MEDS ORDERED: DEXTROSE 15 GM of carb/4 tabs (each vial/BOTTLE has 4 tablets) PO PRN ×2 (19:50)
[2024-02-29] VITALS (24 sets, daily range): BP systolic 133–174; BP diastolic 68–100; PULSE 103–133; RESP 14–30; O2SAT 76–98
[2024-02-29 01:30] LABS: ABSOLUTE RETICS # 7600 /CUMM (23000-93000); BASOPHILS % (AUTO) 0.1 % (0-1); EOSINOPHILS % (AUTO) 0 % (0-6); HEMATOCRIT 23.4 % (35.0-45.0); HEMOGLOBIN 7.5 g/dl (12.0-16.0); LYMPHOCYTES # (AUTO) 0.5 X10'3 (1.1-4.8); LYMPHOCYTES % (AUTO) 2.4 % (21-51); MEAN CORPUSCULAR HEMOGLOBIN 26.3 PG (27.0-31.0); MEAN CORPUSCULAR HGB CONC 32.1 g/dL (33.0-36.5); MEAN CORPUSCULAR VOLUME 81.8 FL (78-98); MEAN PLATELET VOLUME 7.4 FL (7.4-10.4); MONOCYTES # (AUTO) 0.7 X10'3 (0-0.9); MONOCYTES % (AUTO) 3.2 % (2-12); NEUTROPHILS # (AUTO) 19.9 X10'3 (1.8-7.7); NEUTROPHILS % (AUTO) 94.3 % (42-75); PLATELET COUNT 69 X10'3 (140-440); RED BLOOD COUNT 2.86 X10'6 (4.20-5.60); RED CELL DISTRIBUTION WIDTH 19.4 % (11.5-14.5); RETICULOCYTE % (AUTO) 0.3 % (0.5-1.5); WHITE BLOOD COUNT 21.1 X10'3 (4.5-11.0)
[2024-02-29 01:41] LABS: APTT 35 SECONDS (22-32); INR 1.5 INR; PROTHROMBIN TIME 15.3 SECONDS (9.0-12.0)
[2024-02-29] MEDS: morphine 4 MG/ML inj SYRINge IV PRN (02:11)
[2024-02-29 02:14] LABS: ABSOLUTE RETICS # 7900 /CUMM (23000-93000); BASOPHILS % (AUTO) 0.1 % (0-1); EOSINOPHILS % (AUTO) 0 % (0-6); HEMATOCRIT 23.6 % (35.0-45.0); HEMOGLOBIN 7.7 g/dl (12.0-16.0); LYMPHOCYTES # (AUTO) 0.5 X10'3 (1.1-4.8); LYMPHOCYTES % (AUTO) 2.3 % (21-51); MEAN CORPUSCULAR HEMOGLOBIN 26.8 PG (27.0-31.0); MEAN CORPUSCULAR HGB CONC 32.5 g/dL (33.0-36.5); MEAN CORPUSCULAR VOLUME 82.3 FL (78-98); MONOCYTES # (AUTO) 0.6 X10'3 (0-0.9); MONOCYTES % (AUTO) 2.8 % (2-12); NEUTROPHILS # (AUTO) 19.7 X10'3 (1.8-7.7); NEUTROPHILS % (AUTO) 94.8 % (42-75); PLATELET COUNT 64 X10'3 (140-440); RED BLOOD COUNT 2.86 X10'6 (4.20-5.60); RED CELL DISTRIBUTION WIDTH 19.3 % (11.5-14.5); RETICULOCYTE % (AUTO) 0.3 % (0.5-1.5); WHITE BLOOD COUNT 20.8 X10'3 (4.5-11.0)
[2024-02-29 02:29] LABS: ALBUMIN 3.6 G/DL (3.4-5.0); ANION GAP 18 (8-16); BLOOD UREA NITROGEN 102 MG/DL (7-18); BUN/CREATININE RATIO 24.1 (10.0-20.0); CALCIUM 6.9 MG/DL (8.5-10.1); CHLORIDE 105 MMOL/L (99-107); CREATINE KINASE 584 U/L (26-192); CREATININE 4.24 MG/DL (0.40-0.90); GLUCOSE 101 MG/DL (70-104); MAGNESIUM 1.8 MG/DL (1.5-2.4); SODIUM 143 MMOL/L (135-145); TOTAL CARBON DIOXIDE 20.1 MMOL/L (24-32); eCRCL 9 ML/MIN; eGFR 10 ML/MIN
[2024-02-29 02:32] LABS: HEMOGLOBIN A1C 5.8 % (4.5-6.2)
[2024-02-29 02:34] LABS: POTASSIUM 2.6 MMOL/L (3.5-5.1)
[2024-02-29] MEDS ORDERED: magnesium sulf-water 2g/50mL 50 ML IV PRN (02:50)
[2024-02-29] MEDS ORDERED: potassium Cl 40MEQ/1/2NS 520ml 520 ML IV PRN (02:50)
[2024-02-29 03:13] LABS: TOTAL CELLS COUNTED 100
[2024-02-29 03:17] LABS: ANISOCYTOSIS 2+; PLATELET ESTIMATE DECREASED
[2024-02-29 03:18] LABS: ACANTHOCYTES FEW; BURR CELLS 1+; HYPOCHROMASIA 1+; SCHISTOCYTES FEW
[2024-02-29 03:19] LABS: TOXIC GRANULATION 1+
[2024-02-29 03:20] LABS: POIKILOCYTOSIS 1+
[2024-02-29] MEDS: potassium Cl 20mEq/100mL bag 100 ML IV PRN (03:21)
[2024-02-29] MEDS: CefTRIAXone/D5W-Rocephin 1gm 50 ML IV SCH (07:41)
[2024-02-29] MEDS: levoTHYROXINE 100mcg tablet PO SCH (07:42)
[2024-02-29] MEDS: K and/or MAG REPLACEMENT MC SCH (08:00)
[2024-02-29] MEDS ORDERED: dextrose 50%-water 50ml dispensing syringe IV PRN (08:00)
[2024-02-29] MEDS: dextrose 50%-water 50ml dispensing syringe IV PRN (08:07)
[2024-02-29] MEDS: morphine 2 MG/ML inj. syringe IV PRN (10:20)
[2024-02-29] MEDS: ondansetron/PF 4mg/2ml inj IV PRN (10:20)
[2024-02-29] MEDS: acetaminophen 325mg tablet PO PRN (10:21)
[2024-02-29] MEDS: NUT.TX.IMPAIRED DIGEST FXN (Ensure Clear) 237 ML PO SCH (13:00)
[2024-02-29] MEDS: potassium Cl 40MEQ/270ML bag 270 ML IV PRN (15:11)
[2024-02-29 16:26] LABS: HEMOGLOBIN 7.4 g/dl (12.0-16.0); MEAN CORPUSCULAR HEMOGLOBIN 26.9 PG (27.0-31.0); MEAN CORPUSCULAR HGB CONC 32.4 g/dL (33.0-36.5); MEAN CORPUSCULAR VOLUME 83.1 FL (78-98); MEAN PLATELET VOLUME 7.9 FL (7.4-10.4); PLATELET COUNT 53 X10'3 (140-440); RED BLOOD COUNT 2.77 X10'6 (4.20-5.60); RED CELL DISTRIBUTION WIDTH 19.6 % (11.5-14.5); WHITE BLOOD COUNT 19.4 X10'3 (4.5-11.0)
[2024-02-29] MEDS: ringers solution, lacted 1,000 ML IV ONE (16:52)
[2024-02-29 17:39] LABS: ABG BASE EXCESS -9.9 mmol/L (-2.0-3.0); ABG HCO3 17.4 mmol/L (21.0-28.0); ABG OXYGEN SATURATION 94.9 % (94.0-98.0); ABG PCO2 (T) 43.5 mmHg (32.0-45.0); ABG PH (T) 7.215 (7.350-7.450); ABG PO2 (T) 82.1 mmHg (83.0-108.0); ALLEN'S TEST POSITIVE; FCOHb 1.4 % (0.5-1.5); FLOW 2 L/min; FMetHb 0.3 % (0.0-1.5); FO2Hb 93.3 % (94.0-98.0); MODE NASAL CANNULA; PATIENT TEMPERATURE 36.3; TOTAL HEMOGLOBIN 8.6 G/dl (12.0-16.0)
[2024-02-29 18:01] LABS: ALANINE AMINOTRANSFERASE 57 U/L (12-78); ALBUMIN 3.9 G/DL (3.4-5.0); ALBUMIN/GLOBULIN RATIO 2.3 (1.1-1.5); ALKALINE PHOSPHATASE 48 IU/L (46-116); ANION GAP 13 (8-16); ASPARTATE AMINO TRANSFERASE 85 U/L (10-37); BILIRUBIN,TOTAL 0.8 MG/DL (0.1-1.0); BLOOD UREA NITROGEN 99 MG/DL (7-18); BUN/CREATININE RATIO 24.2 (10.0-20.0); CALCIUM 7.2 MG/DL (8.5-10.1); CHLORIDE 107 MMOL/L (99-107); CREATININE 4.09 MG/DL (0.40-0.90); GLUCOSE 135 MG/DL (70-104); SODIUM 142 MMOL/L (135-145); TOTAL CARBON DIOXIDE 21.7 MMOL/L (24-32); TOTAL PROTEIN 5.6 G/DL (6.4-8.2); eCRCL 9 ML/MIN; eGFR 11 ML/MIN
[2024-02-29] MEDS: sodium bicarbonate (8.4%) 1 mEq/ml syringe IV ONE (18:50)
[2024-02-29 19:01] LABS: APTT 33 SECONDS (22-32); D-DIMER 16.98 MG/L FEU (0-0.50); FIBRINOGEN 307 MG/DL (177-424); INR 1.3 INR
[2024-02-29] MEDS: sodium bicarbonate 1meq/ml inj 150 ML in dextrose 5%-water 1,000 ML IV SCH (19:09)
[2024-02-29] MEDS: levoFLOXACIN-Levaquin 750MG/D5 150 ML IV SCH (20:15)
[2024-02-29] MEDS: diatr meglu/diatrizoate 30ml oral sol.-(3 dose) bottle PO SCH (21:00)
[2024-03-01] VITALS (16 sets, daily range): BP systolic 106–173; BP diastolic 55–93; PULSE 97–123; RESP 9–33; TEMP 96.8–97.5; O2SAT 88–99
[2024-03-01] MEDS: dexmedetomidin/NS 400mcg/100ml 100 ML IV PRN (01:06)
[2024-03-01 02:58] LABS: BASOPHILS % (AUTO) 0.1 % (0-1); EOSINOPHILS % (AUTO) 0 % (0-6); LYMPHOCYTES # (AUTO) 0.3 X10'3 (1.1-4.8); LYMPHOCYTES % (AUTO) 1.8 % (21-51); MEAN CORPUSCULAR HEMOGLOBIN 27.3 PG (27.0-31.0); MEAN CORPUSCULAR HGB CONC 33.1 g/dL (33.0-36.5); MEAN CORPUSCULAR VOLUME 82.3 FL (78-98); MEAN PLATELET VOLUME 8.3 FL (7.4-10.4); MONOCYTES # (AUTO) 0.4 X10'3 (0-0.9); MONOCYTES % (AUTO) 2.8 % (2-12); NEUTROPHILS # (AUTO) 14.3 X10'3 (1.8-7.7); NEUTROPHILS % (AUTO) 95.3 % (42-75); RED BLOOD COUNT 2.11 X10'6 (4.20-5.60); RED CELL DISTRIBUTION WIDTH 19.5 % (11.5-14.5)
[2024-03-01 03:03] LABS: HEMATOCRIT 17.4 % (35.0-45.0); HEMOGLOBIN 5.8 g/dl (12.0-16.0); PLATELET COUNT 46 X10'3 (140-440)
[2024-03-01 03:04] LABS: APTT 33 SECONDS (22-32); INR 1.3 INR; PROTHROMBIN TIME 13.6 SECONDS (9.0-12.0)
[2024-03-01 03:11] LABS: ALBUMIN 3.4 G/DL (3.4-5.0); ANION GAP 9 (8-16); BLOOD UREA NITROGEN 93 MG/DL (7-18); BUN/CREATININE RATIO 24.2 (10.0-20.0); CHLORIDE 106 MMOL/L (99-107); CREATININE 3.85 MG/DL (0.40-0.90); GLUCOSE 144 MG/DL (70-104); MAGNESIUM 1.3 MG/DL (1.5-2.4); PHOSPHORUS 3.5 MG/DL (2.3-4.5); POTASSIUM 3.2 MMOL/L (3.5-5.1); SODIUM 143 MMOL/L (135-145); TOTAL CARBON DIOXIDE 28.3 MMOL/L (24-32); eCRCL 9 ML/MIN; eGFR 12 ML/MIN
[2024-03-01] MEDS: potassium Cl 20mEq/100mL bag 100 ML IV PRN (04:18)
[2024-03-01] MEDS: magnesium sulf-water 4G/100mL 100 ML IV PRN (07:31)
[2024-03-02] MEDS ORDERED: levoFLOXACIN-Levaquin 500mg/D5 100 ML IV SCH (20:00)
[2024-03-10] MEDS ORDERED: potassium Cl 20mEq/100mL bag 100 ML IV PRN (03:30)
== END 2024-03-01 11:59 | DRG 871 ==
LOC: ER 00:13 → ED HOLD 05:21 → EDBEDREQ 05:43 → CICU 2S 07:20
PROVIDERS: ADMIT Internal Medicine Pulmonary Disease; ATTEND Internal Medicine Pulmonary Disease
PROC: 06HY33Z Insertion of Infusion Device into Lower Vein, Percutaneous Approach (ICD-10-PCS; principal; 2024-02-28)
PROC: B54BZZA Ultrasonography of Right Lower Extremity Veins, Guidance (ICD-10-PCS; 2024-02-28)
PROC: 0DB78ZX Excision of Stomach, Pylorus, Via Natural or Artificial Opening Endoscopic, Diagnostic (ICD-10-PCS; 2024-02-28)
PROC: 30233N1 Transfusion of Nonautologous Red Blood Cells into Peripheral Vein, Percutaneous Approach (ICD-10-PCS; 2024-02-28)
DX: A41.9 Sepsis, unspecified organism (principal); G93.41 Metabolic encephalopathy; R65.21 Severe sepsis with septic shock; I21.4 Non-ST elevation (NSTEMI) myocardial infarction; N17.0 Acute kidney failure with tubular necrosis; K25.4 Chronic or unspecified gastric ulcer with hemorrhage; K21.01 Gastro-esophageal reflux disease with esophagitis, with bleeding; K26.4 Chronic or unspecified duodenal ulcer with hemorrhage; N39.0 Urinary tract infection, site not specified; E87.1 Hypo-osmolality and hyponatremia; E87.20 Acidosis, unspecified; I44.2 Atrioventricular block, complete; I25.10 Atherosclerotic heart disease of native coronary artery without angina pectoris; E78.5 Hyperlipidemia, unspecified; D69.6 Thrombocytopenia, unspecified; E87.6 Hypokalemia; I48.91 Unspecified atrial fibrillation; M54.9 Dorsalgia, unspecified; D64.9 Anemia, unspecified; R73.9 Hyperglycemia, unspecified; I10 Essential (primary) hypertension; D50.9 Iron deficiency anemia, unspecified; Z88.8 Allergy status to other drugs, medicaments and biological substances; Z88.2 Allergy status to sulfonamides; Z79.899 Other long term (current) drug therapy; Z88.6 Allergy status to analgesic agent; Z79.01 Long term (current) use of anticoagulants; Z90.710 Acquired absence of both cervix and uterus; Z90.49 Acquired absence of other specified parts of digestive tract; Z86.73 Personal history of transient ischemic attack (TIA), and cerebral infarction without residual deficits; I25.2 Old myocardial infarction; Z95.2 Presence of prosthetic heart valve; Z82.3 Family history of stroke; Z82.49 Family history of ischemic heart disease and other diseases of the circulatory system
CPT/HCPCS: 36415; 36430; 36600; 43239; 43243; 43255; 71045; 71250; 74176; 76770; 80048; 80053; 81001; 82140; 82272; 82550; 82803; 82948; 83010; 83036; 83605; 83735; 83880; 84100; 84132; 84145; 84443; 84484; 85007; 85018; 85025; 85027; 85045; 85379; 85384; 85610; 85730; 86885; 86900; 86901; 86920; 87040; 87077; 87081; 87088; 87186; 88305; 88342; 92508; 93005; 93306; 96365; 96375; 99152; 99153; 99291; A4615; A4620; A5200; A6213; A6250; A6258; A6449; C1751; C1758; G0378; J0171; J0282; J0696; J0780; J1956; J2250; J2270; J2405; J2470; J3010; J3475; J3480; J3490; J7030; J7040; J7070; J7120; P9016; P9045; P9047; Q9963